=== PATIENT | female | born 1995 | race American Indian/Alaskan Native ===

== ENCOUNTER 2019-03-16 16:45 | Emergency (ER) | payer SELFPAY ==
[2019-03-16 17:55] VITALS: BP 108/66
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
== END 2019-03-16 18:08 | disposition home or self-care (01) ==
LOC: ED 16:45
DX: Z71.1 Person with feared health complaint in whom no diagnosis is made (principal)
CPT/HCPCS: 99282

== ENCOUNTER 2019-05-27 06:50 | Emergency (ER) | payer SELFPAY ==
[2019-05-27 07:54] LABS: Basophils % (Auto) 0.1 % (0.0-1.8); Eosinophils % (Auto) 0.2 % (0.0-4.3); Hematocrit 41.9 % (30.3-42.9); Hemoglobin 13.8 gm/dl (10.1-14.3); Lymphocytes # (Auto) 0.3 K/mm3 (1.2-5.4); Mean Corpuscular HGB Conc 33 % (30-34); Mean Corpuscular Volume 87 fl (79-97); Monocytes # (Auto) 0.7 K/mm3 (0.0-0.8); Monocytes % (Auto) 7.9 % (0.0-7.3); Platelet Count 256 K/mm3 (140-440); Red Blood Count 4.81 M/mm3 (3.65-5.03); Red Cell Distribution Width 15.4 % (13.2-15.2)
[2019-05-27] MEDS ORDERED: FAMOTIDINE 20 MG/2 ML INJ IV ONE (08:08)
[2019-05-27] MEDS ORDERED: KETOROLAC 30 MG/1 ML INJ IV ONE (08:08)
[2019-05-27] MEDS ORDERED: SODIUM CHLORIDE 0.9% 1000 ML 1,000 ML IV ONE ×2 (08:08→10:10)
[2019-05-27] MEDS ORDERED: ONDANSETRON 4 MG/2 ML INJ IV ONE (08:08)
--- NOTE | 2019-05-27 08:13 | Emergency Department Report ---
ED Abdominal Pain HPI - General Chief Complaint: Abdominal Pain Stated Complaint: ABD PAIN Time Seen by Provider: 05/27/19 08:08 Source: patient, EMS Mode of arrival: Stretcher Limitations: No Limitations - History of Present Illness Initial Comments: Patient is a 24-year-old female with no significant past history who is presenting with one day of lower abdominal pain with nausea vomiting. Patient states she has had multiple episodes of vomiting but cannot give an exact number of primary episodes. Patient states that the abdomen is tender in the bilateral lower abdomen and states that the pain is 8 out of 10 in severity. She denies any dysuria vaginal bleeding or vaginal discharge. Patient states there is no diarrhea. The patient states she has chills. Patient denies cough cold congestion neck stiffness or sore throat. Patient states she's never had pain of this magnitude before. Severity scale (0 -10): 5 - Related Data Previous Rx's Medication Instructions Recorded Last Taken Type Ciprofloxacin HCl [Ciprofloxacin 500 mg PO Q12HR #14 tab 05/27/19 Unknown Rx TAB] Dicyclomine [Bentyl] 20 mg PO QID #10 tablet 05/27/19 Unknown Rx Ondansetron [Zofran Odt] 4 mg PO Q8HR #10 tab.rapdis 05/27/19 Unknown Rx traMADol [Ultram] 50 mg PO Q6HR PRN #12 tablet 05/27/19 Unknown Rx Allergies Allergy/AdvReac Type Severity Reaction Status Date / Time No Known Allergies Allergy Unverified 03/16/19 16:48 ED Review of Systems ROS: Stated complaint: ABD PAIN Other details as noted in HPI Comment: All other systems reviewed and negative ED Past Medical Hx - Past Medical History Previous Medical History?: No - Surgical History Past Surgical History?: No - Social History Smoking Status: Current Some Day Smoker Substance Use Type: Alcohol - Medications Home Medications: Home Medications Medication Instructions Recorded Confirmed Last Taken Type Ciprofloxacin HCl [Ciprofloxacin 500 mg PO Q12HR #14 tab 05/27/19 Unknown Rx TAB] Dicyclomine [Bentyl] 20 mg PO QID #10 tablet 05/27/19 Unknown Rx Ondansetron [Zofran Odt] 4 mg PO Q8HR #10 tab.rapdis 05/27/19 Unknown Rx traMADol [Ultram] 50 mg PO Q6HR PRN #12 tablet 05/27/19 Unknown Rx ED Physical Exam - General Limitations: No Limitations General appearance: alert, in no apparent distress - Head Head exam: Present: atraumatic, normocephalic - Eye Eye exam: Present: normal appearance, PERRL, EOMI - ENT ENT exam: Present: mucous membranes moist - Neck Neck exam: Present: normal inspection - Respiratory Respiratory exam: Present: normal lung sounds bilaterally. Absent: respiratory distress, wheezes, rales, rhonchi - Cardiovascular Cardiovascular Exam: Present: normal rhythm, tachycardia, normal heart sounds. Absent: systolic murmur, diastolic murmur, rubs, gallop - GI/Abdominal GI/Abdominal exam: Present: soft, tenderness (bilateral lower abdomen including the suprapubic region), normal bowel sounds. Absent: distended, guarding, rebound, rigid - Extremities Exam Extremities exam: Present: normal inspection - Back Exam Back exam: Present: normal inspection - Neurological Exam Neurological exam: Present: alert, oriented X3 - Psychiatric Psychiatric exam: Present: normal affect, normal mood - Skin Skin exam: Present: warm, dry, intact, normal color. Absent: rash ED Course Vital Signs 05/27/19 05/27/19 05/27/19 07:06 09:10 09:44 Temperature 99.0 F Pulse Rate 123 H 121 H 114 H Respiratory 14 21 Rate Blood Pressure 112/66 Blood Pressure 112/66 107/61 [Left] O2 Sat by Pulse 99 97 Oximetry 05/27/19 05/27/19 05/27/19 09:46 10:00 10:16 Temperature Pulse Rate 125 H 122 H 120 H Respiratory 26 H 26 H 15 Rate Blood Pressure 116/64 122/72 122/72 Blood Pressure [Left] O2 Sat by Pulse 98 98 99 Oximetry 05/27/19 10:30 Temperature Pulse Rate 124 H Respiratory 25 H Rate Blood Pressure 122/72 Blood Pressure [Left] O2 Sat by Pulse 97 Oximetry ED Medical Decision Making - Lab Data Result diagrams: 05/27/19 07:21 05/27/19 07:21 Lab Results 05/27/19 05/27/19 05/27/19 Range/Units 07:21 07:21 08:08 WBC 8.5 (4.5-11.0) K/mm3 RBC 4.81 (3.65-5.03) M/mm3 Hgb 13.8 (10.1-14.3) gm/dl Hct 41.9 (30.3-42.9) % MCV 87 (79-97) fl MCH 29 (28-32) pg MCHC 33 (30-34) % RDW 15.4 H (13.2-15.2) % Plt Count 256 (140-440) K/mm3 Lymph % (Auto) 3.0 L (13.4-35.0) % Tyrrell % (Auto) 7.9 H (0.0-7.3) % Eos % (Auto) 0.2 (0.0-4.3) % Baso % (Auto) 0.1 (0.0-1.8) % Lymph # 0.3 L (1.2-5.4) K/mm3 Tyrrell # 0.7 (0.0-0.8) K/mm3 Eos # 0.0 (0.0-0.4) K/mm3 Baso # 0.0 (0.0-0.1) K/mm3 Seg Neutrophils % 88.8 H (40.0-70.0) % Seg Neutrophils # 7.5 (1.8-7.7) K/mm3 Sodium 140 (137-145) mmol/L Potassium 4.1 (3.6-5.0) mmol/L Chloride 104.0 (98-107) mmol/L Carbon Dioxide 23 (22-30) mmol/L Anion Gap 17 mmol/L BUN 17 (7-17) mg/dL Creatinine 0.8 (0.7-1.2) mg/dL Estimated GFR > 60 ml/min BUN/Creatinine Ratio 21 % Glucose 102 H (65-100) mg/dL Calcium 9.0 (8.4-10.2) mg/dL Total Bilirubin 0.50 (0.1-1.2) mg/dL AST 15 (5-40) units/L ALT 8 (7-56) units/L Alkaline Phosphatase 65 (35-129) units/L Total Protein 7.8 (6.3-8.2) g/dL Albumin 4.4 (3.9-5) g/dL Albumin/Globulin Ratio 1.3 % Lipase 19 (13-60) units/L HCG, Quant < 2 (0-4) mIU/mL Urine Color (Yellow) Urine Turbidity (Clear) Urine pH (5.0-7.0) Ur Specific Kimberly (1.003-1.030) Urine Protein (Negative) mg/dL Urine Glucose (UA) (Negative) mg/dL Urine Ketones (Negative) mg/dL Urine Blood (Negative) Urine Nitrite (Negative) Urine Bilirubin (Negative) Urine Urobilinogen (<2.0) mg/dL Ur Leukocyte Esterase (Negative) Urine WBC (Auto) (0.0-6.0) /HPF Urine RBC (Auto) (0.0-6.0) /HPF U Epithel Cells (Auto) (0-13.0) /HPF Urine Bacteria (Auto) (Negative) /HPF Urine Mucus /HPF Urine HCG, Qual (Negative) 05/27/19 Range/Units 08:10 WBC (4.5-11.0) K/mm3 RBC (3.65-5.03) M/mm3 Hgb (10.1-14.3) gm/dl Hct (30.3-42.9) % MCV (79-97) fl MCH (28-32) pg MCHC (30-34) % RDW (13.2-15.2) % Plt Count (140-440) K/mm3 Lymph % (Auto) (13.4-35.0) % Tyrrell % (Auto) (0.0-7.3) % Eos % (Auto) (0.0-4.3) % Baso % (Auto) (0.0-1.8) % Lymph # (1.2-5.4) K/mm3 Tyrrell # (0.0-0.8) K/mm3 Eos # (0.0-0.4) K/mm3 Baso # (0.0-0.1) K/mm3 Seg Neutrophils % (40.0-70.0) % Seg Neutrophils # (1.8-7.7) K/mm3 Sodium (137-145) mmol/L Potassium (3.6-5.0) mmol/L Chloride (98-107) mmol/L Carbon Dioxide (22-30) mmol/L Anion Gap mmol/L BUN (7-17) mg/dL Creatinine (0.7-1.2) mg/dL Estimated GFR ml/min BUN/Creatinine Ratio % Glucose (65-100) mg/dL Calcium (8.4-10.2) mg/dL Total Bilirubin (0.1-1.2) mg/dL AST (5-40) units/L ALT (7-56) units/L Alkaline Phosphatase (35-129) units/L Total Protein (6.3-8.2) g/dL Albumin (3.9-5) g/dL Albumin/Globulin Ratio % Lipase (13-60) units/L HCG, Quant (0-4) mIU/mL Urine Color Yellow (Yellow) Urine Turbidity Slightly-cloudy (Clear) Urine pH 8.0 H (5.0-7.0) Ur Specific Kimberly 1.023 (1.003-1.030) Urine Protein 30 mg/dl (Negative) mg/dL Urine Glucose (UA) Neg (Negative) mg/dL Urine Ketones Neg (Negative) mg/dL Urine Blood Neg (Negative) Urine Nitrite Pos (Negative) Urine Bilirubin Neg (Negative) Urine Urobilinogen < 2.0 (<2.0) mg/dL Ur Leukocyte Esterase Neg (Negative) Urine WBC (Auto) 2.0 (0.0-6.0) /HPF Urine RBC (Auto) 2.0 (0.0-6.0) /HPF U Epithel Cells (Auto) 6.0 (0-13.0) /HPF Urine Bacteria (Auto) 4+ (Negative) /HPF Urine Mucus Few /HPF Urine HCG, Qual Negative (Negative) - Radiology Data [facility] [address] [place] [address] Cat Scan Report Signed Patient: JOVANNA LIZARRAGA MR#: [id number] 11 : 1995 Acct:[id number] Age/Sex: 24 / F ADM Date: 05/27/19 Loc: ED Attending Dr: Ordering Physician: HERBERT KELLY MD Date of Service: 05/27/19 Procedure(s): CT abdomen pelvis w con Accession Number(s): [id number] cc: HERBERT KELLY MD CT ABDOMEN AND PELVIS WITH CONTRAST HISTORY: Lower abdominal pain, nausea and vomiting COMPARISON: None. TECHNIQUE: Axial CT images were obtained through the abdomen and pelvis after 100 cc of Omnipaque 300 intravenously. Sagittal and coronal reformatted images. All CT scans at this location are performed using CT dose reduction for ALARA by means of automated exposure control. FINDINGS: CT ABDOMEN: Lung Bases: Clear. Liver: No significant abnormality. Biliary: No significant abnormality. Spleen: No significant abnormality. Unenlarged. Pancreas: No significant abnormality. Adrenals: No significant abnormality. Kidneys: There are several subcentimeter cysts scattered throughout both kidneys. No evidence for mass, hydronephrosis or perinephric fluid. The ureters are normal course and caliber. Lymphatics: No lymphadenopathy. Vasculature: No significant abnormality. Bowel/Peritoneum: Loops of mid to distal small bowel contain moderate fluid. This could be related to enteritis. There is no evidence for obstruction, focal inflammation or bowel wall thickening. Normal appendix. CT PELVIS: : A 1.9 cm right ovarian cyst is identified. The uterus and left adnexa are unremarkable. The bladder and distal ureters are within normal limits. Osseous Structures: No significant abnormality. Additional Findings: None IMPRESSION: 1.9 cm right ovarian cyst. Consider a mild enteritis. No acute inflammatory process is identified. Signer Name: Marv Bronson Jr, MD Signed: 05/27/2019 9:59 AM Workstation Name: [id number] Transcribed By: TTR Dictated By: MARV BRONSON JR, MD Electronically Authenticated By: MARV BRONSON JR, MD Signed Date/Time: 05/27/19 0959 - Medical Decision Making Patient 24-year-old [place] female who is here for nausea vomiting and lower abdominal pain. Patient was given antiemetics and has had no further vomiting here in the emergency department. CT does show large amount of liquid stool within the small intestines. Patient is not started having diarrhea as of yet however patient was told that this may be something that she experiences very soon. Patient was hydrated with 2 L normal saline. Patient has evidence of early UTI as she is nitrite positive with bacteria in the urine. She was started on antibiotics and medications for symptomatic relief be discharged home. Critical care attestation.: If time is entered above; I have spent that time in minutes in the direct care of this critically ill patient, excluding procedure time. ED Disposition Clinical Impression: Gastroenteritis, Acute cystitis Disposition: DC-01 TO HOME OR SELFCARE Is pt being admited?: No Does the pt Need Aspirin: No Condition: Stable Instructions: Gastroenteritis (ED), Acute Nausea and Vomiting (ED), Urinary Tract Infection in Women (ED) Referrals: CALIN SHEETS DO [Staff Physician] - 3-5 Days Time of Disposition: 10:45
[2019-05-27 08:20] LABS: Alanine Aminotransferase 8 units/L (7-56); Albumin 4.4 g/dL (3.9-5); BUN/Creatinine Ratio 21; Blood Urea Nitrogen 17 mg/dL (7-17); Hemolysis Index 6
[2019-05-27 08:41] LABS: Bacteria,Urine 4+ /HPF (Negative); Bilirubin,Urine NEG (Negative); Blood,Urine NEG (Negative); Color,Urine Yellow (Yellow); Mucus,Urine FEW /HPF; Urobilinogen,Urine < 2.0 mg/dL (<2.0)
[2019-05-27 08:46] LABS: HCG Qualitative,Urine Negative (Negative)
--- NOTE | 2019-05-27 10:03 | Cat Scan Report ---
CT ABDOMEN AND PELVIS WITH CONTRAST HISTORY: Lower abdominal pain, nausea and vomiting COMPARISON: None. TECHNIQUE: Axial CT images were obtained through the abdomen and pelvis after 100 cc of Omnipaque 300 intravenously. Sagittal and coronal reformatted images. All CT scans at this location are performed using CT dose reduction for ALARA by means of automated exposure control. FINDINGS: CT ABDOMEN: Lung Bases: Clear. Liver: No significant abnormality. Biliary: No significant abnormality. Spleen: No significant abnormality. Unenlarged. Pancreas: No significant abnormality. Adrenals: No significant abnormality. Kidneys: There are several subcentimeter cysts scattered throughout both kidneys. No evidence for mas s, hydronephrosis or perinephric fluid. The ureters are normal course and caliber. Lymphatics: No lymphadenopathy. Vasculature: No significant abnormality. Bowel/Peritoneum: Loops of mid to distal small bowel contain moderate fluid. This could be related to enteritis. There is no evidence for obstruction, focal inflammation or bowel wall thickening. Normal appendix. CT PELVIS: : A 1.9 cm right ovarian cyst is identified. The uterus and left adnexa are unremarkable. The bladd er and distal ureters are within normal limits. Osseous Structures: No significant abnormality. Additional Findings: None IMPRESSION: 1.9 cm right ovarian cyst. Consider a mild enteritis. No acute inflammatory process is identified. Signer Name: Marv Bronson Jr, MD Signed: 05/27/2019 9:59 AM Workstation Name: [id number]
[2019-05-27 10:39] VITALS: BP 122/72
== END 2019-05-27 12:26 | disposition home or self-care (01) ==
LOC: ED 06:50
DX: N30.00 Acute cystitis without hematuria (principal); K52.9 Noninfective gastroenteritis and colitis, unspecified; F17.200 Nicotine dependence, unspecified, uncomplicated
CPT/HCPCS: 36415; 74177; 80053; 81001; 81025; 83690; 84702; 85025; 93005; 93010; 96361; 96374; 96375; 99284; J1885; J2405; J7030; Q9967